=== PATIENT | male | born 1940 | race Caucasian/White ===

== ENCOUNTER 2018-10-14 08:26 | Day surgery (SDC) | payer MEDICARE ==
--- NOTE | 2018-10-14 07:04 | History and Physical - Ferro ---
CHIEF COMPLAINT/HISTORY OF CHIEF COMPLAINT: This patient presents with a history of an intractable lumbar radiculopathy. Due to the failure of all therapies, the patient is here for an implanted spinal catheter infusion trial of Hydromorphone to determine if the implantation of a permanent system can be of any value in pain control. PAST MEDICAL HISTORY: Peripheral edema, difficulty sleeping, and degenerative arthritis. PAST SURGICAL HISTORY: List to be provided. MEDICATIONS ON ADMISSION: List to be provided. ALLERGIES: SUDAFED. FAMILY/PSYCHOSOCIAL HISTORY: Social history - Noncontributory. Family history - Diabetes, asthma, and hypertension. SYSTEMS REVIEW: The patient seems appropriate in no acute distress. PHYSICAL EXAMINATION: Height is 5'6", weight is 215. No vital signs. HEENT: Within normal limits. LUNGS: Clear. HEART: Rapid and regular. ABDOMEN: Nontender. MUSCULOSKELETAL: Examination of the musculoskeletal system shows motor and sensory abnormalities to both lower extremities. Ambulation is difficult, an assistive device is required. There are motor and sensory abnormalities circumferentially into both lower extremities. He has a history of left lower extremity swelling and cellulitis although this is not active, it would appear to be a chronic problem. NEUROLOGIC: Cranial nerves are intact. IMPRESSION: LUMBAR RADICULOPATHY, ICD-10 CODE M54.16 AND M54.17. PLAN: This patient was referred to us from out of the area for a pump, although he certainly has failed all conservative therapies, my concern has been and was carefully explained to this patient his history of pre-existing peripheral edema. Pumps can to some extent worsen the peripheral edema which we will certainly need to keep an eye on. He periodically has had problems with cellulitis, he will need to be monitored carefully. A two-week trial period will help us evaluate whether or not this patient is a good candidate. The potential risks, side effects and complications have all been carefully reviewed and discussed. An epidural blood patch will be performed as a prophylactic measure to help prevent the spinal headache, this will require an overnight stay. He will be discharged the following morning. The potential risks, side effects, and complications have been reviewed and discussed. He was put in contact with a clinical specialist who also reviewed and same. JOB NUMBER: [id number] [facility]
[~2018-10-14 08:26] MED LIST: ACETAMINOPHEN 1,000 MG/100 ML BTL IVPB ONE; CEFAZOLIN 2 Gram 2 GM/50 ML BAG IVPB ONE; FAMOTIDINE 20MG TABLET PO ONE; HYDROMORPHONE PF 2MG/ML AMP 0.008 MG in 0.9 % SODIUM CHLORIDE 10ML VIA 0.996 ML IV ONE; HYDROMORPHONE PF 2MG/ML AMP 8 MG in 0.9 % SODIUM CHLORIDE 500ML 496 ML IV ONE; MECLIZINE 25 MG TABLET PO ONE; METOCLOPRAMIDE 10 MG TABLET PO ONE
[2018-10-14] MEDS ORDERED: FENTANYL PF 100MCG/2ML VIAL IV ONE (08:27)
[2018-10-14] MEDS ORDERED: PROPOFOL 10 MG/ML VIAL IV ONE (08:27)
[2018-10-14] MEDS ORDERED: LIDOCAINE 2% MDV (20MG/ML) 20ML VIAL IV ONE (08:27)
[2018-10-14] MEDS ORDERED: MIDAZOLAM HCL 2MG/2ML VIAL IV ONE (08:27)
[2018-10-14] MEDS ORDERED: RINGERS SOLUTION,LACTATED 1,000 ML IV ONE (09:10)
[2018-10-14] MEDS ORDERED: AL HYDROX/MAG HYDROX 30ML UD PO PRN ×2 (10:39→11:00)
[2018-10-14] MEDS ORDERED: HYDROMORPHONE HCL 2 MG/ML VIAL IM PRN ×2 (11:00)
[2018-10-14] MEDS ORDERED: NALOXONE 0.4 MG/1 ML VIAL IVP PRN (11:00)
[2018-10-14] MEDS ORDERED: DIPHENHYDRAMINE HCL 50 MG/ML VIAL IVP PRN ×2 (11:00)
[2018-10-14] MEDS ORDERED: ACETAMINOPHEN 325 MG TAB PO PRN ×2 (11:00)
[2018-10-14] MEDS ORDERED: SENNOSIDES/DOCUSATE SODIUM UD CAPSULE PO PRN ×2 (11:00)
[2018-10-14] MEDS ORDERED: METOCLOPRAMIDE 10 MG TABLET PO PRN (11:00)
[2018-10-14] MEDS ORDERED: DIPHENHYDRAMINE HCL 25 MG CAPSULE PO PRN ×2 (11:00)
[2018-10-14] MEDS ORDERED: OXYCODONE/APAP 10MG-325MG TABLET PO PRN ×2 (11:00)
[2018-10-14] MEDS ORDERED: HYDROCODONE/APAP 7.5/325MG TABLET PO PRN ×2 (11:00)
[2018-10-14] MEDS ORDERED: METOCLOPRAMIDE HCL 10 MG/2 ML VIAL IVP PRN (11:00)
[2018-10-14] MEDS ORDERED: RINGERS SOLUTION,LACTATED 1,000 ML IV SCH (11:00)
[2018-10-14] MEDS ORDERED: TEMAZEPAM 15 MG CAPSULE PO PRN ×2 (11:00)
[2018-10-14] MEDS ORDERED: DIPHENHYDRAMINE HCL 25 MG PO PRN ×2 (13:17)
[2018-10-14] MEDS ORDERED: LIDOCAINE 2% PO PRN ×2 (13:17)
[2018-10-14] MEDS ORDERED: CEFAZOLIN 2 Gram 2 GM/50 ML BAG IVPB SCH (18:00)
--- NOTE | 2018-10-16 13:01 | Operative Note ---
DATE OF SURGERY: 10/14/2018 PREOPERATIVE DIAGNOSIS: Intractable lumbar radiculopathy, ICD10 code M54.16 and M54.17. OPERATION: Implanted spinal catheter infusion trial hydromorphone, canceled. INDICATION: This patient presents with a history of intractable lumbar radiculopathy. He is here for an implanted spinal catheter infusion trial to determine if the implantation of a permanent system can be of any value in pain control. PROCEDURE: Intravenous line, vital sign monitoring, IV sedation by Anesthesia. Patient taken to the operating room and placed prone. Sterile prep, sterile technique. Sedation was started and then the patient became nauseous and vomited several times. Vigorous suctioning was performed. He was turned supine. No incisions. No local. Nothing had been done. At that point, Anesthesia felt it was appropriate to cancel the case and come back another time perhaps with an endotracheal tube general anesthetic. He was transported to the recovery room stable. Placed into a semi-sitting position. Breath sounds were appropriate. He had some soreness in his mouth from the suctioning, otherwise appeared to be stable. His O2 saturations were stable in the room, 93%. He will be monitored, evaluated, discharged to home. Antibiotic will be available but at this point would seem to be unnecessary. Monitor and evaluate. Bring this patient back in 7-10 days for repeat attempt at the surgery under general anesthetic with endotracheal tube and other precautions. CHARO
== END 2018-10-14 15:15 | disposition home or self-care (01) ==
LOC: SUR 08:26 → MEDSURG 11:24 → SUR 15:15
PROVIDERS: ATTEND Pain Medicine Interventional Pain Medicine
DX: M54.16 Radiculopathy, lumbar region (principal); M54.17 Radiculopathy, lumbosacral region; I10 Essential (primary) hypertension; Z79.01 Long term (current) use of anticoagulants; Z86.718 Personal history of other venous thrombosis and embolism; Z85.79 Personal history of other malignant neoplasms of lymphoid, hematopoietic and related tissues
CPT/HCPCS: 63650; 01936; Q9967; J3010; J0690; J7120

== ENCOUNTER 2018-11-04 11:22 | Day surgery (SDC) | payer MEDICARE ==
--- NOTE | 2018-11-04 07:05 | History and Physical - Ferro ---
CHIEF COMPLAINT/HISTORY OF CHIEF COMPLAINT: This patient presents with a history of an intractable lumbar radiculopathy. Due to the failure of all therapy he was referred to this facility for an implanted spinal catheter infusion trial of Hydromorphone to determine if the implantation of a permanent pump would be of any value in pain control. PAST MEDICAL HISTORY: Peripheral edema, difficulty sleeping, and degenerative arthritis. PAST SURGICAL HISTORY: List to be provided. MEDICATIONS ON ADMISSION: List to be provided. ALLERGIES: SUDAFED. FAMILY/PSYCHOSOCIAL HISTORY: Social history - Noncontributory. Family history - Diabetes, asthma, and hypertension. SYSTEMS REVIEW: The patient is appropriate in no acute distress. PHYSICAL EXAMINATION: Height is 5'6", weight is 215. No vital signs. HEENT: Within normal limits. LUNGS: Clear. HEART: Rapid and regular. ABDOMEN: Nontender. MUSCULOSKELETAL: Examination of the musculoskeletal system shows diffuse tenderness throughout the lumbar spine. Range of motion seems to produce pain across the low back and into both lower extremities. There is weakness and sensory loss to both legs across the front and back surface. There is some swelling in the lower extremities. No cellulitis. Ambulation - Assistive device dependent. NEUROLOGIC: Cranial nerves are intact. IMPRESSION: INTRACTABLE LUMBAR RADICULOPATHY, ICD-10 CODE M54.16 AND M54.17. PLAN: The patient is here for an implanted spinal catheter infusion trial with Hydromorphone to determine if the implantation of a permanent system can be of any value in pain control. The procedure will require an overnight stay. A surgically implanted catheter will be placed, an epidural blood patch will be performed as a prophylactic measure against a spinal headache which can happen with the procedure. He will stay flat for four hours and slowly elevated for one hour. He will be kept overnight, monitored and evaluated and then discharged to home in the morning. The two week trial will involve three office based increases, the first within the following two to three days. The potential risks, side effects, complications, spinal cord injury, nerve root injury, and paralysis have all been reviewed and discussed. He was put in contact with a clinical specialist from [employer] who also discussed and reviewed the procedure, its risks, side effects and complications. He was given all of the appropriate information to review. JOB NUMBER: [id number] [facility]
[2018-11-04] MEDS ORDERED: METOPROLOL TART 5 MG/5 ML VIAL IV ONE (11:23)
[2018-11-04] MEDS ORDERED: MECLIZINE 25 MG TABLET PO ONE (11:23)
[2018-11-04] MEDS ORDERED: ALFENTANIL HCL 500 MCG/1ML, 2ML AMP IV ONE (11:23)
[2018-11-04] MEDS ORDERED: METOCLOPRAMIDE 10 MG TABLET PO ONE (11:23)
[2018-11-04] MEDS ORDERED: LIDOCAINE 2% MDV (20MG/ML) 20ML VIAL IV ONE (11:23)
[2018-11-04] MEDS ORDERED: FAMOTIDINE 20MG TABLET PO ONE (11:23)
[2018-11-04] MEDS ORDERED: SEVOFLURANE 250 ML INH ONE (11:23)
[2018-11-04] MEDS ORDERED: CEFAZOLIN 1G VIAL IVP ONE (11:23)
[2018-11-04] MEDS ORDERED: PROPOFOL 10 MG/ML VIAL IV ONE (11:23)
[2018-11-04] MEDS ORDERED: ROCURONIUM BROMIDE 50MG/5ML VIAL IV ONE (11:23)
[2018-11-04] MEDS ORDERED: ACETAMINOPHEN 1,000 MG/100 ML BTL IV ONE (11:23)
[2018-11-04] MEDS ORDERED: RINGERS SOLUTION,LACTATED 1,000 ML IV ONE (11:40)
[2018-11-04] MEDS ORDERED: LIDOCAINE 1% W/EPI 1:100,000 MDV 20 ML VIAL SQ ONE (12:37)
[2018-11-04] MEDS ORDERED: BUPIVACAINE 0.5% W/EPI MPF 30 ML VIAL SQ ONE (12:37)
[2018-11-04] MEDS ORDERED: FENTANYL PF 100MCG/2ML VIAL IVP ONE (14:01)
[2018-11-04] MEDS ORDERED: DIPHENHYDRAMINE HCL 25 MG CAPSULE PO PRN ×2 (14:45)
[2018-11-04] MEDS ORDERED: OXYCODONE/APAP 10MG-325MG TABLET PO PRN (14:45)
[2018-11-04] MEDS ORDERED: NALOXONE 0.4 MG/1 ML VIAL IVP PRN (14:45)
[2018-11-04] MEDS ORDERED: METOCLOPRAMIDE HCL 10 MG/2 ML VIAL IVP PRN (14:45)
[2018-11-04] MEDS ORDERED: METOCLOPRAMIDE 10 MG TABLET PO PRN (14:45)
[2018-11-04] MEDS ORDERED: HYDROCODONE/APAP 7.5/325MG TABLET PO PRN ×2 (14:45)
[2018-11-04] MEDS ORDERED: HYDROMORPHONE HCL 2 MG/ML VIAL IM PRN ×2 (14:45)
[2018-11-04] MEDS ORDERED: AL HYDROX/MAG HYDROX 30ML UD PO PRN (14:45)
[2018-11-04] MEDS ORDERED: DIPHENHYDRAMINE HCL 50 MG/ML VIAL IVP PRN ×2 (14:45)
[2018-11-04] MEDS ORDERED: SENNOSIDES/DOCUSATE SODIUM UD CAPSULE PO PRN ×2 (14:45)
[2018-11-04] MEDS ORDERED: TEMAZEPAM 15 MG CAPSULE PO PRN (14:45)
[2018-11-04] MEDS ORDERED: ACETAMINOPHEN 325 MG TAB PO PRN (14:45)
[2018-11-04] MEDS: DULOXETINE HCL 30 MG CAPSULE.DR PO SCH ×3 (16:19→22:05)
[2018-11-04] MEDS: GABAPENTIN 300 MG CAPSULE PO SCH ×3 (16:19→22:06)
[2018-11-04] MEDS ORDERED: NYSTATIN 15 GM TUBE TOP PRN (16:26)
[2018-11-04] MEDS: OXYCODONE/APAP 10MG-325MG TABLET PO PRN (19:44)
[2018-11-04] MEDS: CEFAZOLIN 2 Gram 2 GM/50 ML BAG IVPB SCH (19:44)
[2018-11-04] MEDS: MELATONIN 5 MG TABLET PO SCH ×2 (20:33→22:05)
[2018-11-04] MEDS: TAMSULOSIN HCL 0.4 MG CAP.ER.24H PO SCH ×2 (20:33→22:05)
[2018-11-04] MEDS: TRAZODONE 50 MG TABLET PO SCH ×2 (20:34→22:05)
[2018-11-05] MEDS: CEFAZOLIN 2 Gram 2 GM/50 ML BAG IVPB SCH ×3 (04:07→12:16)
[2018-11-05] MEDS: OXYCODONE/APAP 10MG-325MG TABLET PO PRN (09:51)
[2018-11-05] MEDS: DULOXETINE HCL 30 MG CAPSULE.DR PO SCH (09:52)
[2018-11-05] MEDS: GABAPENTIN 300 MG CAPSULE PO SCH (09:53)
[2018-11-05] MEDS: RINGERS SOLUTION,LACTATED 1,000 ML IV SCH ×3 (12:07→12:11)
--- NOTE | 2018-11-05 13:51 | Operative Note ---
DATE OF SURGERY: 11/04/2018 PREOPERATIVE DIAGNOSIS: Lumbar radiculopathy, ICD10 code M54.16 and M54.17. OPERATION: 1. Fluoroscopic-guided access spinal space at L3-4, placement of thin-walled spinal catheter T11-12. 2. Diagnostic myelography with radiologic supervision and interpretation. 3. Spinal opioid bolus hydromorphone 0.004 mg. 4. Incision, subcutaneous dissection, and anchoring of spinal catheter to supraspinous fascia with a [employer] anchor and nonabsorbable suture. 5. Incision, subcutaneous dissection, and creation of subcutaneous pouch at left flank ultimately for pump placement. 6. Tunneling spinal catheter into flank pouch, interface catheter to secondary catheter component by way of a connector. 7. Tunneling second catheter component 6 cm superior, exiting skin. 8. Interface external catheter to external pump set to deliver hydromorphone at 0.16 mg a day. 9. Epidural blood patch at L4-5, 15 mL autologous blood drawn sterile technique, left antecubital. 10. Placement of dressings securing catheter and all connections under sterile dressing. Patient transported to recovery room flat, pillow under head and knees, stable. No unusual side effects from the procedure or sedation. The anesthetic, general with endotracheal tube, endotracheal tube had been removed, patient appropriate, saturating appropriately. No unusual events. Full functionality of extremities. SURGEON: Paul Osborne DO ANESTHESIA: Local with sedation. General with endotracheal tube. ANESTHESIA PROVIDER: Lindsey Rhodes INDICATION: This patient presents with a history of intractable lumbar radiculopathy. Due to the failure of all therapies, here for an implanted spinal catheter infusion trial with hydromorphone to determine if the implantation of a permanent system can be of any value in pain control. 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 PROCEDURE: Intravenous line, vital sign monitoring, IV sedation. Prepped and draped in sterile technique. Patient positioned prone. Sterile prep, sterile technique. The spinal interspace at L3-4 was marked on the skin. Skin infiltrated and a 20-gauge spinal needle bevel with the long axis paramedian approach into the spinal space using AP and lateral imaging. The needle was advanced slowly on lateral image. With CSF flow, a thin-walled spinal catheter was advanced, positioned T12. The skin above and below the needle infiltrated, incision made, and subcutaneous dissection was conducted to the supraspinous fascia. The needle was removed and the catheter was anchored to the supraspinous fascia with a [employer] anchor and nonabsorbable suture. There was still CSF noted to the catheter. Catheter was clamped to limit CSF loss. Diagnostic myelography was then performed through the catheter. Spinal flow characteristics were appropriate for the space. Smooth linear flow. Tip of the catheter posterior identified. No unusual findings. No pain on the part of the patient or response. A bolus of hydromorphone 0.004 mg was given through the catheter. At the left flank, a site ultimately picked by the patient for the pump, skin infiltrated, incision made, and subcutaneous dissection was conducted to form a small pouch. The spinal catheter was then tunneled into the pouch and then the catheter was interfaced with a second catheter component by way of a connector. This second catheter component was tunneled 6 cm superior exiting the skin. The external catheter was interfaced to an external pump set to deliver hydromorphone at 0.16 mg a day. At L4-5, which was one level below the dural puncture, skin infiltrated and an 18-gauge Tuohy needle was used to gain entry into the epidural space. Simultaneously, 15 mL autologous blood drawn sterile technique from the left antecubital. This blood placed onto the field maintaining sterility. An epidural blood patch was then performed at this level with this blood. Needle removed. Dressings were placed after the midline incision was closed with Stratafix suture, 2-0 fascia, 3-0 skin. The left flank incision was closed with running nylon. The dressing was then placed over the incisions and also used to secure the catheter and all connections under the sterile dressing. He was transported to the recovery room flat, pillow under head and knees, stable. Full functionality of the extremities. No unusual pain patterns. Tolerated the anesthetic without difficulty. He will be kept flat for 4 hours, slowly elevated for 1, and kept overnight for observation. Because of his history of peripheral edema and his chronic history of urinary problems which have periodically required catheterizations, he will be monitored and evaluated and discharged in the morning. [facility]
--- NOTE | 2018-11-08 22:15 | RADIOLOGY REPORT ---
EXAM: SPINE, 1 VIEW HISTORY: PAIN PUMP TRIAL. COMPARISON: None. TECHNIQUE: A frontal portable view of the thoracolumbar spine obtained. FINDINGS: There are several tubular and curvilinear opacities projecting over the left abdomen. It is difficult to visualize an intrathecal catheter. There are multilevel degenerative changes of the spine with bridging osteophytes greatest at the thoracolumbar junction and lumbar spine. IMPRESSION: DIFFICULT TO VISUALIZE THE PATIENT'S PAIN PUMP CATHETER. JOB NUMBER: [id number] [facility]
== END 2018-11-05 11:30 | disposition home or self-care (01) ==
LOC: SUR 11:22 → MEDSURG 14:20 → SUR 11-05 11:30
PROVIDERS: ATTEND Pain Medicine Interventional Pain Medicine
DX: M54.16 Radiculopathy, lumbar region (principal); M54.17 Radiculopathy, lumbosacral region; I10 Essential (primary) hypertension; Z86.718 Personal history of other venous thrombosis and embolism; Z79.01 Long term (current) use of anticoagulants
CPT/HCPCS: 72020; J0690; J1170; J7040; J7120

== ENCOUNTER 2018-11-11 12:41 | Day surgery (SDC) | payer MEDICARE ==
--- NOTE | 2018-11-11 08:01 | History and Physical - Ferro ---
CHIEF COMPLAINT/HISTORY OF CHIEF COMPLAINT: This patient with a history of intractable lumbar radiculopathy has an implanted spinal catheter infusion trial with Hydromorphone and although he has achieved 90+% pain control he has also had problems with urinary retention which unfortunately predated the trial. The trial made this urinary retention worse. He has been doing the process of self catheterization for the last week. He has a urologic evaluation within the next seven to ten days. We decided collectively that self catheterization was traumatic, potentially harmful and at this point we would terminate the trial and re-evaluate a new trial once he has been treated adequately by urology. PAST MEDICAL HISTORY: Unchanged. PAST SURGICAL HISTORY: Unchanged. MEDICATIONS ON ADMISSION: Unchanged. ALLERGIES: SUDAFED. FAMILY/PSYCHOSOCIAL HISTORY: Social history - Unchanged. Family history - Unchanged. SYSTEMS REVIEW: The patient is appropriate. PHYSICAL EXAMINATION: Unchanged. Height 5'6", weight 215. HEENT: Within normal limits. LUNGS: Clear. HEART: Rapid. ABDOMEN: Nontender. MUSCULOSKELETAL: Examination of the musculoskeletal system shows the dressings intact for the implanted catheter trial. The external infusion device is in place and off. Underlying pain pattern low back bilateral lower extremity. NEUROLOGIC: Cranial nerves are intact. IMPRESSION: 1. LUMBAR RADICULOPATHY, ICD-10 CODE M54.16 AND M54.17. 2. IMPLANTED SPINAL CATHETER INFUSION TRIAL HYDROMORPHONE SIDE EFFECTS. PLAN: The patient is here for removal of the catheter and termination of the trial. The procedure will be outpatient, an overnight stay will not be necessary. cc: Dr. Buitrago and Dr. Llamas JOB NUMBER: [id number] [facility]
[~2018-11-11 12:41] MED LIST changes: +ACETAMINOPHEN 1,000 MG/100 ML BTL IV ONE; -ACETAMINOPHEN 1,000 MG/100 ML BTL IVPB ONE; -HYDROMORPHONE PF 2MG/ML AMP 0.008 MG in 0.9 % SODIUM CHLORIDE 10ML VIA 0.996 ML IV ONE; -HYDROMORPHONE PF 2MG/ML AMP 8 MG in 0.9 % SODIUM CHLORIDE 500ML 496 ML IV ONE
[2018-11-11] MEDS ORDERED: FENTANYL PF 100MCG/2ML VIAL IV ONE (12:42)
[2018-11-11] MEDS ORDERED: MIDAZOLAM HCL 2MG/2ML VIAL IV ONE (12:42)
[2018-11-11] MEDS ORDERED: RINGERS SOLUTION,LACTATED 1,000 ML IV ONE (15:04)
[2018-11-11] MEDS ORDERED: BUPIVACAINE 0.5% W/EPI MPF 30 ML VIAL SQ ONE (15:30)
[2018-11-11] MEDS ORDERED: CEFAZOLIN 1G VIAL IR ONE (15:30)
[2018-11-11] MEDS ORDERED: LIDOCAINE 1% W/EPI 1:200,000 MPF 30ML SQ ONE (15:30)
--- NOTE | 2018-11-13 15:51 | Operative Note ---
DATE OF SURGERY: 11/11/2018 PREOPERATIVE DIAGNOSES: 1. Lumbar radiculopathy, ICD10 code M54.16 and M54.17. 2. Implanted spinal infusion system implanted catheter hydromorphone. OPERATION: 1. Fluoroscopic-guided incision, subcutaneous dissection, and removal of implanted spinal catheter. 2. Incision, subcutaneous dissection, and removal of externalized spinal catheter. ANESTHESIA PROVIDER: Regina Whitaker INDICATION: This patient presents with a pain which is low back, hip, and leg. Implanted spinal catheter infusion trial hydromorphone has been ongoing 1 week. The patient achieved 75% to 100% pain control but unfortunately had urinary retention which was unresolved with reductions of the infusion. Conclusion: Urology consult, discontinue the trial. PROCEDURE: Intravenous line, vital sign monitoring, IV sedation by Anesthesia. Patient positioned prone. Sterile prep, sterile technique. Midline incision for the implanted catheter infiltrated, incision made, subcutaneous dissection was conducted to the implanted catheter anchor. Suture cut, anchor removed, pursestring suture placed and then the spinal catheter was removed from the spinal space while tightening the pursestring suture stopping CSF leak. At the left flank, a site for the externalized interfaced catheter to the indwelling catheter, skin infiltrated, incision made, and subcutaneous dissection was conducted to the pouch. The connector between internal and external catheter was cut, removed. The external catheter was removed by pulling away from the incision. Antibiotic irrigation, Bovie for hemostasis. The incisions were closed using 2-0 Vicryl and tad for skin. An OpSite dressing was placed. Imaging used to confirm removal of the entire catheter component. He was then transported to the recovery room stable. No side effects from the procedure or sedation. He will be monitored and then discharged home. DISCHARGE INSTRUCTIONS: 1. Sites to remain clean and dry. No showering or bathing in any way to disrupt the dressings. The office will contact him at home in the next 24-48 hours to set up a time in 7-10 days for us to evaluate the sites. 2. Standard medications resumed including the antibiotic Levaquin. He will continue Levaquin for another 7-10 days. 3. Standard medications resume. A prescription for [place] has been prepared for postoperative pain control. All other instructions provided. Any complications or side effects, he should contact the clinic or go to local emergency room. All other instructions provided. CHARO
== END 2018-11-11 16:30 | disposition home or self-care (01) ==
LOC: SUR 12:41
PROVIDERS: ATTEND Pain Medicine Interventional Pain Medicine
DX: M54.16 Radiculopathy, lumbar region (principal); M54.17 Radiculopathy, lumbosacral region; R33.9 Retention of urine, unspecified; I10 Essential (primary) hypertension; Z85.79 Personal history of other malignant neoplasms of lymphoid, hematopoietic and related tissues; Z86.718 Personal history of other venous thrombosis and embolism; Z79.01 Long term (current) use of anticoagulants
CPT/HCPCS: J0690; J7120